=== PATIENT | female | born 1990 | race Caucasian/White ===

== ENCOUNTER 2017-10-21 07:02 | Emergency (ER) | payer OTHER ==
[2017-10-21] MEDS ORDERED: CYCLOBENZAPRINE HCL 10 MG TABLET PO ONE (07:38)
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
[2017-10-21 09:03] VITALS: BP 108/76
== END 2017-10-21 09:24 | disposition home or self-care (01) ==
LOC: ER 07:02
DX: M54.2 Cervicalgia (principal); M25.519 Pain in unspecified shoulder; V87.7XXA Person injured in collision between other specified motor vehicles (traffic), initial encounter
CPT/HCPCS: 72050; 99283